=== PATIENT | male | born 1975 | race Caucasian/White ===

== ENCOUNTER 2023-12-23 10:19 | Emergency (ER) | payer OTHER, SELFPAY ==
--- NOTE | 2023-12-23 10:23 | ED.C_ITS ---
HPI - Psych General: Chief Complaint: Psychiatric Symptoms Stated Complaint: MHE Time Seen by Provider: 12/23/23 10:22 Source: patient Mode of arrival: ambulatory Limitations: no limitations History of Present Illness: Patient is a 48-year-old male who presents to ED today wanting to get back on his psychiatric medications. Patient tells me he takes Abilify and Gabapentin for schizoaffective and anxiety. He states he really wants to get back on his Klonopin that he took daily for sleep. Patient states he is recently moved to [place] and is currently residing at the [facility]. He states over the past several years he has been bouncing around homeless in [facility], [place], [place]. He states he has been on and off his meds for these years stating he would actively seek Crisis Centers who sometimes would put him back on meds. He feels like his anxiety is causing him to feel like he is going to crawl out of his own skin. Denies drug use besides marijuana. No a lcohol use. When asked about SI, he states sometimes his voices associated with his schizoaffective disorder will tell him to harm himself that he knows these are just voices and would never act on them. He has never attempted suicide previously. He tells me he does not want to and currently does not have any thoughts of harming himself. complaint: other (wants back on his psych meds) Onset (ago): month(s) Duration: constant History of same: Yes Context: not taking psychiatric medications Associated symptoms: Deny auditory hallucinations, visual hallucinations, depression, homicidal ideation or suicidal ideation Treatments prior to arrival: none Review of Systems Const: Denies: fever(s) or chills Card: Denies: chest pain, palpitations, lightheadedness or syncope Resp: Denies: dyspnea GI: Denies: abdominal pain, nausea, vomiting or diarrhea Skin/Breast: Denies: rash Neuro: Denies: headache(s) Psych: Reports: anxiety and sleeping less; Denies: depression, visual hallucinations, auditory hallucinations, suicidal ideation or homicidal ideation Physical Exam Const: COMMON NORMALS: no acute distress, patient oriented x3, alert and well nourished GENERAL APPEARANCE: cooperative and well kempt Resp: COMMON NORMALS: normal respiratory effort and clear to auscultation bilaterally AUSCULTATION: clear to auscultation bilaterally Cardio: COMMON NORMALS: regular rate and regular rhythm RATE: regular rate RHYTHM: regular rhythm Neuro: COMMON NORMALS: patient oriented x3 SENSORIUM/ORIENTATION: Yes alert Psych: COMMON NORMALS: mental status grossly normal, Normal thought process present, cooperative, normal affect, denies hallucinations, denies homicidal ideation and denies suicidal ideation APPEARANCE: Yes grossly normal and Yes well kempt ATTITUDE: Yes engaged ACTIVITY/MOTOR BEHAVIOR: Yes appropriate eye contact, No psychomotor agitation and Yes fidgeting SPEECH: Yes Pressured speech present MOOD & AFFECT: Yes euthymic mood THOUGHT PROCESS: Normal thought process present ATTENTION/CONCENTRATION: Yes attention grossly intact and Yes concentration grossly intact MEMORY/COGNITION: Yes memory grossly intact and Yes cognition grossly intact INSIGHT: Good insight present (Psych) JUDGEMENT: Good judgement present (Psych) Course Vital Signs: Vital signs: Vital Signs Temperature 97.4 F L 12/23/23 10:24 Pulse Rate 72 12/23/23 10:24 Respiratory Rate 18 12/23/23 10:24 Blood Pressure 118/79 12/23/23 10:24 Pulse Oximetry 97 12/23/23 10:24 Oxygen Delivery Me thod Room Air 12/23/23 10:24 MDM - Psych Medical Decision Making Patient is not suicidal. Recommend admission to [facility] for psychiatric evaluation but patient declines as he is afraid he is going to lose his bed at the [facility] facility. He also states they are a bunch of thieves and feel they are going to steal his things while he is admitted. I told him I am not willing to place him back on all of his medications and then discharge him from the emergency department. He states he is agreeable to going to the Crisis Center as well as awaiting appointment with [facility]. Case management referral placed. Return ED precautions given. Medical Records I reviewed the patient's medical records. No radiology studies performed this visit Discharge Plan Discharge Patient Disposition: Home Clinical Impression: Anxiety, Homeless Schizoaffective disorder Qualifiers: Schizoaffective disorder type: unspecified Qualified Code(s): F25.9 - Schizoaffective disorder, unspecified Condition: Stable Prescriptions: No Action gabapentin 600 mg Tablet 600 mg PO TID Abilify 15 mg Tablet 30 mg PO QPM Discharge Orders: Discharge ED (Routine); Ordered 12/23/23 Ordered By: Hayde Alvarado Activity Restrictions/Additional Instructions: As we discussed I recommend mended you come into the hospital and be admitted to our NPU/neuropsychiatric unit to be evaluated by a psychiatrist and restarted on some of your medications that you are declining as you are concerned you are going to lose your bed and belongings at the [facility]. As we discussed you may go to our Crisis Center to see what services they can provide as you await an appointment at [facility]. Coding Level of Care Code ED Air Control/Anti Air Warfare Officer for Derrick Crocker
[2023-12-23 10:24] VITALS: BP 118/79; PULSE 72; RESP 18; TEMP 36.3; O2SAT 97
--- NOTE | 2023-12-23 10:38 | PC.PHAR ---
pt states he takes care of his own medications-pt states not had meds for 3 weeks-mendy tamayo ar [phone] states last filled 11/09/2023 30d/s abilify 15mg take 30mg qpm and gabapentin 600mg tid-mendy also states they have lamictal 25mg tid-hydroxyzine pamoate 100mg q6h prn ax and propranolol 10mg tid prn ax all 3 are on hold
--- NOTE | 2023-12-28 09:56 | PC.SOCIAL ---
[facility] Follow-Up Message sent to [facility] for follow up appt. Clinic to contact patient with appt date/time.
== END 2023-12-23 11:06 | disposition home or self-care (01) ==
PROVIDERS: Emergency Provider Physician Assistant
DX: F25.9 Schizoaffective disorder, unspecified (principal); F41.9 Anxiety disorder, unspecified; Z59.01 Sheltered homelessness
CPT/HCPCS: 99283